=== PATIENT | male | born 1935 | race Caucasian/White ===

== ENCOUNTER 2022-07-12 12:32 | Outpatient (RCR) | payer MEDICARE, OTHER ==
[~2022-07-12 12:32] MED LIST: ALBU17AE3 IH; ASP325T PO; ASPI325T32 PO; BUDE0.5A2 IH; CIPR500T78 PO; CRESTOR40 MG PO; DOCU-161 PO; FISH OIL OMEGA1 EACH PO; FLT05NA16 NSEACH; FNT100TD TD; FNT25TD TD; HYDR-3583 PO; HYDR-91 PO; HYDR1TAB66 PO; HYOS0.1216 PO; KETOCONAZOLE 2% TP; KETOCONAZOLE TOP; LEVA1.25 IH; LEVO250T7 PO; LEVO500T78 PO; LISI20TA PO; LISI40TA PO; MONT10TA24 PO; NIAC500T6 PO; PHEN100T26 PO; PHEN200T27 PO; ROPI0.5T2 PO; ROSU10TA12 PO; ROSU20TA14 PO; SILO8CAP PO; [UNRECOGNIZED DRUG - OTHER] NSEACH
== END 2022-07-23 ==
LOC: ONC 12:32
PROVIDERS: ATTEND Internal Medicine Hematology & Oncology
DX: C61 Malignant neoplasm of prostate (principal); C67.9 Malignant neoplasm of bladder, unspecified